=== PATIENT | male | born 1960 | race Caucasian/White ===

== ENCOUNTER 2017-09-30 21:21 | Inpatient (IN) | payer OTHER ==
[2017-09-30] MEDS: hydrALAzine 20 MG INJ IV (22:37)
[2017-09-30 22:44] LABS: ADD MAN DIFF? NO
[2017-09-30 22:46] LABS: WHITE BLOOD COUNT 5.7 10^3/ul (4.8-10.8)
[2017-09-30 22:46] LABS: BASOPHIL # 0.1 10^3/ul (0.0-0.1); BASOPHILS % 0.9 % (0.0-2.0); EOSINOPHILS # 0.2 10^3/ul (0.0-0.5); EOSINOPHILS % 3.3 % (0.0-7.0); HEMATOCRIT 41.9 % (42.0-52.0); HEMOGLOBIN 14.7 g/dl (14.0-18.0); LYMPHOCYTES # 2.2 10^3/ul (0.8-2.9); LYMPHOCYTES % 38.4 % (15.0-51.0); MEAN CORPUSCULAR HEMOGLOBIN 28.5 pg (29.0-33.0); MEAN CORPUSCULAR HGB CONC 35.1 g/dl (32.0-37.0); MEAN CORPUSCULAR VOLUME 81.2 fl (82.0-101.0); MEAN PLATELET VOLUME 12.4 fl (7.4-10.4); MONOCYTE # 0.4 10^3/ul (0.3-0.9); MONOCYTES % 7.7 % (0.0-11.0); NEUTROPHIL # 2.8 10^3/ul (1.6-7.5); NEUTROPHILS % 49.5 % (39.0-77.0); PLATELET COUNT 149 10^3/UL (140-415); RED BLOOD COUNT 5.16 10^6/ul (4.70-6.10); RED CELL DISTRIBUTION WIDTH 12.9 % (11.5-14.5)
[2017-09-30 23:10] LABS: ANION GAP 19 (8-16); BLOOD UREA NITROGEN 20 mg/dl (7-20); CALCIUM 9.7 mg/dl (8.4-10.2); CARBON DIOXIDE 23 mmol/L (21-31); CHLORIDE 104 mmol/L (97-110); CREATININE 1.03 mg/dl (0.61-1.24); GLUCOSE 243 mg/dl (70-220); POTASSIUM 4.1 mmol/L (3.5-5.1); SODIUM 142 mmol/L (135-144)
[2017-09-30 23:24] LABS: TROPONIN-I 0.293 ng/ml (0.00-0.12)
[2017-10-01] MEDS: ASPIRIN 325 MG TAB PO (01:40)
[2017-10-01] MEDS: ONDANSETRON 4 MG INJ IV (01:40)
[2017-10-01] MEDS: morphine 4 MG/ML VIAL IV (01:41)
[2017-10-01 06:19] LABS: CREATINE KINASE 151 IU/L (23-200)
[2017-10-01] MEDS: DEXTROSE 5%-0.45% NACL 1,000 ML IV (06:22)
[2017-10-01 06:25] LABS: CK INDEX 0.8
[2017-10-01] MEDS ORDERED: ONDANSETRON 4 MG INJ IV (06:30)
[2017-10-01] MEDS ORDERED: morphine 2 MG INJ IV (06:30)
[2017-10-01] MEDS ORDERED: ACETAMINOPHEN 325 MG TAB PO (06:30)
[2017-10-01] MEDS ORDERED: NACL 0.9% 3 ML SYG IV (06:30)
[2017-10-01] MEDS ORDERED: ALBUTEROL/IPRATROPIUM (NEB) 3 ML AMP HHN (06:30)
[2017-10-01] MEDS ORDERED: NITROGLYCERIN (SL) 0.4 MG TAB SL (06:30)
[2017-10-01 06:45] LABS: CK-MB 1.26 ng/ml (0.0-2.4); TROPONIN-I 0.269 ng/ml (0.00-0.12)
[2017-10-01 07:32] LABS: ADD MAN DIFF? NO
[2017-10-01 07:34] LABS: WHITE BLOOD COUNT 5.6 10^3/ul (4.8-10.8)
[2017-10-01 07:34] LABS: BASOPHILS % 0.5 % (0.0-2.0); EOSINOPHILS # 0.2 10^3/ul (0.0-0.5); EOSINOPHILS % 3.6 % (0.0-7.0); HEMATOCRIT 40.7 % (42.0-52.0); HEMOGLOBIN 14.4 g/dl (14.0-18.0); LYMPHOCYTES # 2.1 10^3/ul (0.8-2.9); LYMPHOCYTES % 36.8 % (15.0-51.0); MEAN CORPUSCULAR HEMOGLOBIN 28.9 pg (29.0-33.0); MEAN CORPUSCULAR HGB CONC 35.4 g/dl (32.0-37.0); MEAN CORPUSCULAR VOLUME 81.7 fl (82.0-101.0); MEAN PLATELET VOLUME 11.9 fl (7.4-10.4); MONOCYTE # 0.5 10^3/ul (0.3-0.9); MONOCYTES % 8.4 % (0.0-11.0); NEUTROPHIL # 2.8 10^3/ul (1.6-7.5); NEUTROPHILS % 50.3 % (39.0-77.0); PLATELET COUNT 148 10^3/UL (140-415); RED BLOOD COUNT 4.98 10^6/ul (4.70-6.10); RED CELL DISTRIBUTION WIDTH 13.1 % (11.5-14.5)
[2017-10-01 07:56] LABS: HEMOGLOBIN A1C 7.6 % (0-5.9)
[2017-10-01 07:56] LABS: ALANINE AMINOTRANSFERASE 48 IU/L (13-69); ALBUMIN/GLOBULIN RATIO 1.37; ALKALINE PHOSPHATASE 62 IU/L (42-121); ANION GAP 16 (8-16); ASPARTATE AMINO TRANSFERASE 30 IU/L (15-46); BILIRUBIN,INDIRECT 0.4 mg/dl (0-1.1); BILIRUBIN,TOTAL 0.4 mg/dl (0.2-1.3); BLOOD UREA NITROGEN 18 mg/dl (7-20); CALCIUM 9.1 mg/dl (8.4-10.2); CARBON DIOXIDE 26 mmol/L (21-31); CHLORIDE 107 mmol/L (97-110); CHOL/HDL RATIO 5.3 RATIO; CHOLESTEROL 236 mg/dl (100-200); CREATININE 0.99 mg/dl (0.61-1.24); GLUCOSE 171 mg/dl (70-220); HDL CHOLESTEROL 44 mg/dl (28-71); LDL CHOLESTEROL,CALCULATED 153 mg/dl; POTASSIUM 4.5 mmol/L (3.5-5.1); SODIUM 144 mmol/L (135-144); TOTAL PROTEIN 6.9 g/dl (6.1-8.1); TRIGLYCERIDES 193 mg/dl (0-149)
[2017-10-01] MEDS ORDERED: TICAGRELOR 60 MG PO (09:00)
[2017-10-01] MEDS: ASPIRIN (EC) 81 MG TAB PO (09:02)
[2017-10-01 12:46] LABS: CREATINE KINASE 154 IU/L (23-200)
[2017-10-01 12:50] LABS: CK INDEX 0.8
[2017-10-01 12:54] LABS: CK-MB 1.18 ng/ml (0.0-2.4); TROPONIN-I 0.216 ng/ml (0.00-0.12)
[2017-10-01] MEDS: INSULIN ASPART [NOVOLOG] 3 ML PEN SC ×3 (13:09→21:00)
[2017-10-01] MEDS ORDERED: LIDOCAINE 1% (MDV) 20 ML INJ (17:33)
[2017-10-01] MEDS ORDERED: IODIXANOL LOCM 100 ML BTL ×2 (17:33→18:26)
[2017-10-01] MEDS ORDERED: FENTAnyl 50 MCG/ML VIAL (17:33)
[2017-10-01] MEDS ORDERED: MIDAZOLAM 1 MG/ML 2 ML INJ (17:33)
[2017-10-01] MEDS ORDERED: VERAPAMIL 5 MG INJ (17:38)
[2017-10-01] MEDS ORDERED: NITROGLYCERIN (IC) 100 MCG/ML INJ (17:38)
[2017-10-01 17:42] LABS: TROPONIN-I 0.206 ng/ml (0.00-0.12)
[2017-10-01] MEDS ORDERED: IOHEXOL 350MG/ML 50 ML BTL (18:29)
[2017-10-01] MEDS ORDERED: HEPARIN 1000 UNITS/ML 10 ML INJ (18:29)
[2017-10-01] MEDS ORDERED: TICAGRELOR 90 MG TABLET (19:14)
[2017-10-01] MEDS: SOD CHLORIDE 0.9% 1,000 ML IV (19:19)
[2017-10-01] MEDS: INSULIN GLARGINE [LANtus] 3 ML PEN SC (20:51)
[2017-10-01] MEDS ORDERED: ATORVASTATIN 10 MG TAB PO (21:00)
[2017-10-01] MEDS ORDERED: TICAGRELOR 90 MG TABLET PO (21:00)
[2017-10-01 23:19] LABS: TROPONIN-I 0.319 ng/ml (0.00-0.12)
[2017-10-02] MEDS: INSULIN ASPART [NOVOLOG] 3 ML PEN SC ×3 (01:00→10:05)
[2017-10-02] MEDS: ACCU-CHEK XX (02:00)
[2017-10-02] MEDS: SOD CHLORIDE 0.9% 1,000 ML IV (03:49)
[2017-10-02 05:00] LABS: ADD MAN DIFF? NO
[2017-10-02 05:02] LABS: BASOPHILS % 0.6 % (0.0-2.0); EOSINOPHILS # 0.2 10^3/ul (0.0-0.5); EOSINOPHILS % 2.6 % (0.0-7.0); HEMATOCRIT 40.3 % (42.0-52.0); HEMOGLOBIN 14.2 g/dl (14.0-18.0); LYMPHOCYTES # 1.4 10^3/ul (0.8-2.9); MEAN CORPUSCULAR HEMOGLOBIN 28.7 pg (29.0-33.0); MEAN CORPUSCULAR HGB CONC 35.2 g/dl (32.0-37.0); MEAN CORPUSCULAR VOLUME 81.6 fl (82.0-101.0); MEAN PLATELET VOLUME 11.7 fl (7.4-10.4); MONOCYTE # 0.5 10^3/ul (0.3-0.9); MONOCYTES % 6.9 % (0.0-11.0); NEUTROPHIL # 4.7 10^3/ul (1.6-7.5); NEUTROPHILS % 68.8 % (39.0-77.0); PLATELET COUNT 152 10^3/UL (140-415); RED BLOOD COUNT 4.94 10^6/ul (4.70-6.10); RED CELL DISTRIBUTION WIDTH 13.2 % (11.5-14.5)
[2017-10-02 05:02] LABS: WHITE BLOOD COUNT 6.9 10^3/ul (4.8-10.8)
[2017-10-02 05:21] LABS: CREATINE KINASE 130 IU/L (23-200)
[2017-10-02 05:24] LABS: ANION GAP 16 (8-16); BLOOD UREA NITROGEN 16 mg/dl (7-20); CALCIUM 9.2 mg/dl (8.4-10.2); CARBON DIOXIDE 21 mmol/L (21-31); CHLORIDE 109 mmol/L (97-110); CREATININE 0.89 mg/dl (0.61-1.24); GLUCOSE 145 mg/dl (70-220); MAGNESIUM 1.8 mg/dl (1.7-2.5); PHOSPHORUS 3.5 mg/dl (2.5-4.9); POTASSIUM 3.9 mmol/L (3.5-5.1); SODIUM 142 mmol/L (135-144)
[2017-10-02 05:25] LABS: ALANINE AMINOTRANSFERASE 46 IU/L (13-69); ALBUMIN/GLOBULIN RATIO 1.48; ALKALINE PHOSPHATASE 62 IU/L (42-121); ANION GAP 17 (8-16); ASPARTATE AMINO TRANSFERASE 31 IU/L (15-46); BILIRUBIN,INDIRECT 0.6 mg/dl (0-1.1); BILIRUBIN,TOTAL 0.6 mg/dl (0.2-1.3); BLOOD UREA NITROGEN 16 mg/dl (7-20); CALCIUM 9.2 mg/dl (8.4-10.2); CARBON DIOXIDE 21 mmol/L (21-31); CHLORIDE 109 mmol/L (97-110); CREATININE 0.89 mg/dl (0.61-1.24); GLUCOSE 144 mg/dl (70-220); POTASSIUM 3.9 mmol/L (3.5-5.1); SODIUM 143 mmol/L (135-144); TOTAL PROTEIN 6.7 g/dl (6.1-8.1)
[2017-10-02 05:32] LABS: B-TYPE NATRIURETIC PEPTIDE 244 PG/ML (0-125)
[2017-10-02 05:34] LABS: CK INDEX 1.1
[2017-10-02 05:40] LABS: CK-MB 1.48 ng/ml (0.0-2.4); TROPONIN-I 0.375 ng/ml (0.00-0.12)
[2017-10-02] MEDS: ASPIRIN (EC) 81 MG TAB PO (08:18)
[2017-10-02] MEDS: TICAGRELOR 90 MG TABLET PO (08:19)
[2017-10-02] MEDS ORDERED: GLUCOSE GEL 15 GRAM TUBE BUCCAL (09:00)
[2017-10-02] MEDS ORDERED: GLUCAGON 1 MG INJ IM (09:00)
[2017-10-02] MEDS ORDERED: DEXTROSE 50% 50 ML SYRINGE IV ×2 (09:00)
[2017-10-02] MEDS ORDERED: GLUCOSE GEL 15 GRAM TUBE PO ×2 (09:00)
[2017-10-02] MEDS: LOSARTAN 25 MG TAB PO (10:02)
[2017-10-02] MEDS ORDERED: ATORVASTATIN 40 MG TAB PO (21:00)
[2017-10-02] MEDS ORDERED: FLUVASTATIN PO (21:00)
[2017-10-03] MEDS ORDERED: metFORMIN 500 MG TAB PO (07:35)
== END 2017-10-02 10:20 | disposition home or self-care (01) | DRG 247 ==
LOC: ICU 10-02 05:29 → E/R 21:21 → MS3 10-01 01:21 → ICU 10-01 19:19
PROC: 027034Z Dilation of Coronary Artery, One Artery with Drug-eluting Intraluminal Device, Percutaneous Approach (ICD-10-PCS; principal; 2017-10-01 17:00)
PROC: 02C03ZZ Extirpation of Matter from Coronary Artery, One Artery, Percutaneous Approach (ICD-10-PCS; 2017-10-01 17:00)
PROC: 4A023N7 Measurement of Cardiac Sampling and Pressure, Left Heart, Percutaneous Approach (ICD-10-PCS; 2017-10-01 17:00)
PROC: B211YZZ Fluoroscopy of Multiple Coronary Arteries using Other Contrast (ICD-10-PCS; 2017-10-01 17:00)
PROC: B215YZZ Fluoroscopy of Left Heart using Other Contrast (ICD-10-PCS; 2017-10-01 17:00)
DX: I21.4 Non-ST elevation (NSTEMI) myocardial infarction (principal); I25.10 Atherosclerotic heart disease of native coronary artery without angina pectoris; I10 Essential (primary) hypertension; E78.5 Hyperlipidemia, unspecified; E11.9 Type 2 diabetes mellitus without complications; F17.210 Nicotine dependence, cigarettes, uncomplicated; Z79.4 Long term (current) use of insulin; Z79.82 Long term (current) use of aspirin; Z95.5 Presence of coronary angioplasty implant and graft; Z79.02 Long term (current) use of antithrombotics/antiplatelets
CPT/HCPCS: 36415; 71045; 80048; 80053; 80061; 82550; 82553; 82962; 83036; 83735; 83880; 84100; 84443; 84484; 85025; 93005; 93306; 93458; 96374; 96375; 99291-25